=== PATIENT | male | born 1995 | race Caucasian/White ===

== ENCOUNTER 2016-09-25 20:53 | Emergency (ER) | payer SELFPAY ==
[2016-09-25 20:53] VITALS: BP 111/85
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
[2016-09-25] MEDS ORDERED: IBUPROFEN 800 MG TABLET. PO ONE (21:45)
[2016-09-25] MEDS ORDERED: CYCLOBENZAPRINE 10 MG TABLET. PO ONE (21:45)
[2016-09-25] MEDS ORDERED: CYCL10TA2 PO (22:19)
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
== END 2016-09-25 22:30 | disposition home or self-care (01) ==
LOC: ER 20:53
DX: S39.012A Strain of muscle, fascia and tendon of lower back, initial encounter (principal); S16.1XXA Strain of muscle, fascia and tendon at neck level, initial encounter; M25.552 Pain in left hip; M25.551 Pain in right hip; J45.909 Unspecified asthma, uncomplicated; V89.2XXA Person injured in unspecified motor-vehicle accident, traffic, initial encounter; Y93.89 Activity, other specified; Y92.413 State road as the place of occurrence of the external cause; Y99.8 Other external cause status
CPT/HCPCS: 73521; 99284